=== PATIENT | female | born 1990 | race Caucasian/White ===

== ENCOUNTER 2018-04-21 13:27 | Emergency (ER) | payer OTHER ==
[2018-04-21 13:58] VITALS: BP 124/74
--- NOTE | 2018-04-21 14:16 | UC ---
Bite Injury/Animal HPI - HPI Summary HPI Summary: cat bite right thumb x 1 day minimal puncture wound on her right thumb, no erythema, no swelling, no tenderness, no discharge, no fever or chills - History of Current Complaint Chief Complaint: UCBiteInjury Stated Complaint: CAT BITE Time Seen by Provider: 04/21/18 13:53 Hx Obtained From: Patient Hx Last Menstrual Period: 03/29/18 ?: No Severity Currently: Mild Severity Initially: Mild Pain Intensity: 0 Onset/Duration: Sudden Onset, Lasting Days - 1, Still Present Type of Bite: Pet - cat bite Has Animal Been Immunized?: No Character: Puncture Aggravating Factor(s): Nothing Alleviating Factor(s): Nothing Associated Signs And Symptoms: Negative: Fever, Erythema, Drainage, Swelling, Lymphadenopathy, Numbness/Tingling, Limited ROM Animal Available for Observation: Yes - Allergies/Home Medications Allergies/Adverse Reactions: Allergies Allergy/AdvReac Type Severity Reaction Status Date / Time amoxicillin [From Augmentin] Allergy Hives Verified 04/21/18 13:59 cefaclor [From Ceclor] Allergy Hives Verified 04/21/18 13:59 clavulanic acid Allergy Hives Verified 04/21/18 13:59 [From Augmentin] erythromycin base Allergy Hives Verified 04/21/18 13:59 Home Medications: Home Medications Norgestimate-Ethinyl Estradiol [Ppp-[id number] Tablet] 1 tab PO DAILY 04/21/18 [ History Confirmed 04/21/18] PMH/Surg Hx/FS Hx/Imm Hx Previously Healthy: Yes - Surgical History Surgical History: Yes Surgery Procedure, Year, and Place: wisdom teeth - Family History Known Family History: Negative: Diabetes - Social History Alcohol Use: Rare Substance Use Type: None Smoking Status (MU): Never Smoked Tobacco Review of Systems Constitutional: Negative Eyes: Negative ENT: Negative Respiratory: Negative Cardiovascular: Negative Is Patient Immunocompromised?: No All Other Systems Reviewed And Are Negative: Yes Physical Exam Triage Information Reviewed: Yes Appearance: Well-Appearing, No Pain Distress, Well-Nourished Vital Signs: Initial Vital Signs Temp 98.2 F 04/21/18 13:54 Pulse 68 04/21/18 13:54 Resp 16 04/21/18 13:54 BP 124/74 04/21/18 13:54 Pulse Ox 100 04/21/18 13:54 Vital Signs Reviewed: Yes Eyes: Positive: Conjunctiva Clear ENT: Positive: Normal ENT inspection, Hearing grossly normal, Pharynx normal Neck exam: Normal Neck: Positive: Supple, Nontender, No Lymphadenopathy Respiratory: Positive: Chest non-tender, Lungs clear, Normal breath sounds Cardiovascular: Positive: RRR, No Murmur, Pulses Normal Skin: Positive: Other - cat bite right thumb: + small puncture wound , no erythema, no swelling, no discharge Bite Injury Course/Dx - Differential Dx/Diagnosis Provider Diagnoses: puncture wound right thumb. cat bite right thumb Discharge - Sign-Out/Discharge Documenting (check all that apply): Patient Departure All imaging exams completed and their final reports reviewed: No Studies - Discharge Plan Condition: Stable Disposition: HOME Prescriptions: Clindamycin Cap(NF) [Clindamycin Cap 300 mg Cap(NF)] 300 mg PO TID #30 cap Patient Education Materials: Animal Bite (ED) Referrals: [facility] - Dagoberto COLLAZO [Primary Care Provider] - 3 Days - Billing Disposition and Condition Condition: STABLE Disposition: Home
== END 2018-04-21 14:16 | disposition home or self-care (01) ==
LOC: UCEAST 13:27
DX: S61.031A Puncture wound without foreign body of right thumb without damage to nail, initial encounter (principal); W55.01XA Bitten by cat, initial encounter; Y93.9 Activity, unspecified; Y92.9 Unspecified place or not applicable; Z88.1 Allergy status to other antibiotic agents; Z88.0 Allergy status to penicillin
CPT/HCPCS: 99212; G0463